=== PATIENT | female | born 1985 | race Native Hawaiian/Other Pacific Islander ===

== ENCOUNTER 2016-05-25 05:28 | Outpatient (CLI) | payer OTHER | END 2016-05-25 05:32 | disposition short-term general hospital (02) | LOC: AMB 05:28 | DX: M54.2 Cervicalgia (principal); M25.562 Pain in left knee; M25.561 Pain in right knee; V49.59XA Passenger injured in collision with other motor vehicles in traffic accident, initial encounter; Y92.488 Other paved roadways as the place of occurrence of the external cause | CPT/HCPCS: A0425; A0429 ==

== ENCOUNTER 2016-05-25 05:38 | Emergency (ER) | payer OTHER ==
[~2016-05-25] VITALS: Ht 144.8 cm; Wt 53.1 kg
[2016-05-25 06:04] VITALS: TEMP 98.3
[2016-05-25 08:17] VITALS: BP 113/74
== END 2016-05-25 08:17 | disposition home or self-care (01) ==
LOC: ED 05:38
DX: S80.02XA Contusion of left knee, initial encounter (principal); S80.01XA Contusion of right knee, initial encounter; S16.1XXA Strain of muscle, fascia and tendon at neck level, initial encounter; S39.012A Strain of muscle, fascia and tendon of lower back, initial encounter; V43.62XA Car passenger injured in collision with other type car in traffic accident, initial encounter; Y93.89 Activity, other specified; Y92.89 Other specified places as the place of occurrence of the external cause
CPT/HCPCS: 96372; 99283; J1885